=== PATIENT | female | born 1935 | race Caucasian/White ===

== ENCOUNTER → 2023-09-05 | Outpatient (CLI) | payer OTHER ==
[2023-09-05 09:14] LABS: Basophils # (auto) 0.1 10 ^3/uL (0-0.2); Basophils % (auto) 0.9 % (0.0-2.0); Eosinophils # (auto) 0.4 10 ^3/uL (0-0.8); Lymphocytes # (auto) 2.1 10 ^3/uL (0.4-5.4); Neutrophils # (auto) 4.9 10 ^3/uL (1.6-8.6)
[2023-09-05 09:16] LABS: Eosinophils % (auto) 5.5 % (0.0-7.0); Hematocrit 34.2 % (36.0-46.0); Hemoglobin 10.7 g/dL (12.2-16.2); Lymphocytes % (auto) 25.9 % (10.0-50.0); Mean Corpuscular Hemoglobin 22.8 pg (28.0-32.0); Mean Corpuscular Hgb Conc. 31.2 g/dL (32.0-36.0); Mean Corpuscular Volume 73.1 fL (80.0-100.0); Monocytes # (auto) 0.6 10 ^3/uL (0-1.3); Neutrophils % (auto) 60.7 % (37.0-80.0); Red Blood Cells 4.69 10^6/uL (4.0-5.20); Red Cell Distribution Width 16.2 % (11.8-14.3)
[2023-09-05 09:37] LABS: % Iron Saturation 12.9 % (15-50)
[2023-09-05 09:38] LABS: Alanine Aminotransferase 12 U/L (7-40); Alkaline Phosphatase 54 U/L (46-116); Anion Gap 9 (5-15); Calcium 8.2 mg/dL (8.5-10.1); Carbon Dioxide 25 mmol/L (20-30); Chloride 103 mmol/L (98-107); Potassium 4.5 mmol/L (3.5-5.1); Sodium 137 mmol/L (136-145)
[2023-09-05 09:39] LABS: Blood Urea Nitrogen 19 mg/dL (9-23); Glucose 170 mg/dL (74-106); Triglycerides 200 mg/dL (< 150)
[2023-09-05 09:40] LABS: Aspartate Aminotransferase 21 U/L (13-40); LDL Cholesterol 86 mg/dL (< 100)
[2023-09-05 09:41] LABS: Bilirubin, Total 0.2 mg/dL (0.2-1.0); Cholesterol 142 mg/dL (< 200); HDL Cholesterol 30 mg/dL (40-59); Total Protein 6.5 g/dL (5.7-8.2)
[2023-09-05 10:26] LABS: Urine Bacteria MOD /hpf (None Seen); Urine Blood Negative /uL (Negative); Urine Clarity Clear (Clear); Urine Color Colorless (Yellow); Urine Protein, UAD Negative (Negative); Urine Specific Gravity 1.018 (1.001-1.035); Urine Urobilinogen Normal (Negative); Urine WBC 5 /hpf (0 - 5)
[2023-09-05 11:02] LABS: Folate (Folic Acid) 11.05 ng/mL (>5.38)
[2023-09-05 13:18] LABS: Uric Acid 8.9 mg/dL (3.1-7.8)
== END | disposition home or self-care (01) ==
LOC: LAB 08:08
PROVIDERS: ATTEND Family Medicine
DX: Z00.00 Encounter for general adult medical examination without abnormal findings (principal); Z13.89 Encounter for screening for other disorder; H57.9 Unspecified disorder of eye and adnexa
CPT/HCPCS: 36415; 80053; 80061; 81001; 82607; 82746; 83036; 83540; 83550; 84403; 84443; 84550; 85025

== ENCOUNTER 2023-10-17 13:51 | Emergency (ER) | payer MEDICAID, OTHER ==
[~2023-10-17] VITALS: Ht 152.4 cm; Wt 60.2 kg
[2023-10-17 16:32] LABS: Basophils # (auto) 0.1 10 ^3/uL (0-0.2); Basophils % (auto) 0.9 % (0.0-2.0); Hemoglobin 10.1 g/dL (12.2-16.2); Lymphocytes # (auto) 2.4 10 ^3/uL (0.4-5.4); Mean Corpuscular Volume 72.6 fL (80.0-100.0); Monocytes # (auto) 0.6 10 ^3/uL (0-1.3); Neutrophils % (auto) 57.3 % (37.0-80.0); White Blood Cell 8.1 10^3/uL (4.4-10.8)
[2023-10-17 16:33] LABS: Eosinophils # (auto) 0.3 10 ^3/uL (0-0.8); Eosinophils % (auto) 4.2 % (0.0-7.0); Hematocrit 33.1 % (36.0-46.0); Lymphocytes % (auto) 29.8 % (10.0-50.0); Mean Corpuscular Hemoglobin 22.2 pg (28.0-32.0); Mean Corpuscular Hgb Conc. 30.6 g/dL (32.0-36.0); Monocytes % (auto) 7.8 % (0.0-12.0); Neutrophils # (auto) 4.6 10 ^3/uL (1.6-8.6); Red Blood Cells 4.56 10^6/uL (4.0-5.20); Red Cell Distribution Width 15.8 % (11.8-14.3)
[2023-10-17 16:38] LABS: Urine Bacteria FEW /hpf (None Seen); Urine Blood Negative /uL (Negative); Urine Clarity Clear (Clear); Urine Color Colorless (Yellow); Urine Protein, UAD Negative (Negative); Urine Specific Gravity 1.017 (1.001-1.035); Urine Urobilinogen Normal (Negative); Urine WBC 5 /hpf (0 - 5)
[2023-10-17 16:53] LABS: Alanine Aminotransferase 25 U/L (7-40); Albumin 4.7 g/dL (3.2-4.8); Alkaline Phosphatase 85 U/L (46-116); Anion Gap 8 (5-15); Aspartate Aminotransferase 25 U/L (13-40); BUN/Creatinine Ratio 16.8 (10.0-20.0); Blood Urea Nitrogen 18 mg/dL (9-23); Calcium 10.3 mg/dL (8.5-10.1); Carbon Dioxide 30 mmol/L (20-30); Chloride 100 mmol/L (98-107); Glucose 235 mg/dL (74-106); Potassium 4.3 mmol/L (3.5-5.1); Sodium 138 mmol/L (136-145)
[2023-10-17 16:54] LABS: Bilirubin, Total 0.2 mg/dL (0.2-1.0); Total Protein 7.6 g/dL (5.7-8.2)
[2023-10-17] MEDS ORDERED: CEPH500C PO (19:13)
[2023-10-17 19:18] VITALS: BP 163/82; PULSE 82; RESP 16; TEMP 97.9; O2SAT 95
== END 2023-10-17 19:22 | disposition home or self-care (01) ==
LOC: ER 13:51
DX: E11.65 Type 2 diabetes mellitus with hyperglycemia (principal); N39.0 Urinary tract infection, site not specified; I50.9 Heart failure, unspecified; Z79.899 Other long term (current) drug therapy
CPT/HCPCS: 36415; 80053; 81001; 85025; 93005

== ENCOUNTER → 2023-12-05 | Outpatient (CLI) | payer OTHER ==
[~2023-12-05] MED LIST: CEPH500C PO
[2023-12-05 07:59] LABS: Urine Bacteria MANY /hpf (None Seen); Urine Blood Negative /uL (Negative); Urine Clarity Clear (Clear); Urine Hyaline Cast FEW /lpf (0 - 2); Urine Protein, UAD Negative (Negative); Urine Specific Gravity 1.013 (1.001-1.035); Urine Urobilinogen Normal (Negative); Urine WBC 12 /hpf (0 - 5)
[2023-12-05 08:02] LABS: Urine Color Straw (Yellow)
[2023-12-05 08:03] LABS: Basophils # (auto) 0.1 10 ^3/uL (0-0.2); Basophils % (auto) 0.8 % (0.0-2.0); Eosinophils # (auto) 0.4 10 ^3/uL (0-0.8); Hemoglobin 10.9 g/dL (12.2-16.2); Lymphocytes # (auto) 2.1 10 ^3/uL (0.4-5.4)
[2023-12-05 08:04] LABS: Hematocrit 35.5 % (36.0-46.0); Lymphocytes % (auto) 29.5 % (10.0-50.0); Mean Corpuscular Hemoglobin 22.4 pg (28.0-32.0); Mean Corpuscular Hgb Conc. 30.7 g/dL (32.0-36.0); Mean Corpuscular Volume 72.9 fL (80.0-100.0); Monocytes # (auto) 0.6 10 ^3/uL (0-1.3); Neutrophils # (auto) 3.9 10 ^3/uL (1.6-8.6); Neutrophils % (auto) 54.7 % (37.0-80.0); Red Blood Cells 4.87 10^6/uL (4.0-5.20); Red Cell Distribution Width 15.6 % (11.8-14.3); White Blood Cell 7.1 10^3/uL (4.4-10.8)
[2023-12-05 08:20] LABS: Alanine Aminotransferase 15 U/L (7-40); Alkaline Phosphatase 84 U/L (46-116); Anion Gap 8 (5-15); Aspartate Aminotransferase 26 U/L (13-40); BUN/Creatinine Ratio 15.5 (10.0-20.0); Blood Urea Nitrogen 20 mg/dL (9-23); Calcium 9.8 mg/dL (8.5-10.1); Carbon Dioxide 27 mmol/L (20-30); Chloride 102 mmol/L (98-107); Glucose 259 mg/dL (74-106); LDL Cholesterol 83 mg/dL (< 100); Sodium 137 mmol/L (136-145); Triglycerides 229 mg/dL (< 150)
[2023-12-05 08:21] LABS: Albumin 4.5 g/dL (3.2-4.8); Cholesterol 148 mg/dL (< 200); HDL Cholesterol 38 mg/dL (40-59)
[2023-12-05 08:22] LABS: Bilirubin, Total 0.3 mg/dL (0.2-1.0); Total Protein 7.7 g/dL (5.7-8.2)
[2023-12-05 08:23] LABS: Thyroid Stimulating Hormone 0.42 uIU/mL (0.55-4.78)
[2023-12-05 08:42] LABS: Uric Acid 7.3 mg/dL (3.1-7.8)
[2023-12-05 08:55] LABS: Folate (Folic Acid) 12.08 ng/mL (>5.38)
== END | disposition home or self-care (01) ==
LOC: LAB 07:32
PROVIDERS: ATTEND Family Medicine
DX: E11.9 Type 2 diabetes mellitus without complications (principal); D50.9 Iron deficiency anemia, unspecified; Z00.00 Encounter for general adult medical examination without abnormal findings
CPT/HCPCS: 36415; 80053; 80061; 81001; 82607; 82746; 83036; 83615; 84403; 84443; 84550; 85025

== ENCOUNTER → 2024-02-26 | Outpatient (CLI) | payer MEDICAID ==
[2024-02-26 07:24] LABS: Basophils # (auto) 0.1 10 ^3/uL (0-0.2); Eosinophils # (auto) 0.4 10 ^3/uL (0-0.8); Hemoglobin 10.4 g/dL (12.2-16.2); Mean Corpuscular Volume 73.6 fL (80.0-100.0); Monocytes # (auto) 0.5 10 ^3/uL (0-1.3); Neutrophils # (auto) 3.3 10 ^3/uL (1.6-8.6); Red Cell Distribution Width 17.7 % (11.8-14.3)
[2024-02-26 07:25] LABS: Eosinophils % (auto) 6.5 % (0.0-7.0); Lymphocytes % (auto) 31.1 % (10.0-50.0); Mean Corpuscular Hemoglobin 22.5 pg (28.0-32.0); Mean Corpuscular Hgb Conc. 30.6 g/dL (32.0-36.0); Monocytes % (auto) 8.4 % (0.0-12.0); Red Blood Cells 4.62 10^6/uL (4.0-5.20); White Blood Cell 6.3 10^3/uL (4.4-10.8)
[2024-02-26 07:28] LABS: Urine Bacteria MOD /hpf (None Seen); Urine Blood Negative /uL (Negative); Urine Clarity Turbid (Clear); Urine Color Light-Yellow (Yellow); Urine Mucus FEW (None Seen); Urine Protein, UAD Negative (Negative); Urine Specific Gravity 1.018 (1.001-1.035); Urine Urobilinogen Normal (Negative); Urine WBC 7 /hpf (0 - 5)
[2024-02-26 08:06] LABS: Alanine Aminotransferase 11 U/L (7-40); Albumin 4.5 g/dL (3.2-4.8); Alkaline Phosphatase 75 U/L (46-116); Anion Gap 9 (5-15); Aspartate Aminotransferase 20 U/L (13-40); BUN/Creatinine Ratio 22.6 (10.0-20.0); Blood Urea Nitrogen 31 mg/dL (9-23); Calcium 10.1 mg/dL (8.5-10.1); Carbon Dioxide 25 mmol/L (20-30); Chloride 103 mmol/L (98-107); Cholesterol 178 mg/dL (< 200); Glucose 253 mg/dL (74-106); HDL Cholesterol 41 mg/dL (40-59); LDL Cholesterol 98 mg/dL (< 100); Potassium 4.8 mmol/L (3.5-5.1); Sodium 137 mmol/L (136-145); Triglycerides 279 mg/dL (< 150)
[2024-02-26 08:07] LABS: Bilirubin, Total 0.2 mg/dL (0.2-1.0); Thyroid Stimulating Hormone 0.9 uIU/mL (0.55-4.78); Total Protein 7.4 g/dL (5.7-8.2)
[2024-02-26 08:37] LABS: Uric Acid 7.6 mg/dL (3.1-7.8)
[2024-02-26 11:22] LABS: Folate (Folic Acid) 12.08 ng/mL (>5.38)
== END | disposition home or self-care (01) ==
LOC: LAB 06:58
PROVIDERS: ATTEND Family Medicine
DX: E11.9 Type 2 diabetes mellitus without complications (principal); D50.9 Iron deficiency anemia, unspecified
CPT/HCPCS: 36415; 80053; 80061; 81001; 82607; 82746; 83036; 83615; 84403; 84443; 84550; 85025

== ENCOUNTER 2025-06-09 18:14 | Emergency (ER) | payer OTHER, MEDICAID ==
[~2025-06-09] VITALS: Ht 152.4 cm; Wt 55.5 kg
--- NOTE | 2025-06-09 18:31 | ECG ---
[facility] Test Date: 2025-06-09 Test Time: 18:25:11 Pat Name: ROLAND SHEPHERD Department: ED Room: Gender: F Reference Assistant: JULIO : 1935 Requested By: RONY RODGERS Order Number: [id number] Reading MD: Augusto Murray Measurements Intervals [place] Rate: 100 P: 49 RI: 164 QRS: 86 QRSD: 92 T: -34 QT: 343 QTc: 443 Interpretive Statements Sinus tachycardia Borderline right axis deviation Nonspecific repol abnormality, diffuse leads Electronically Signed On 06-11-2025 18:45:28 PDT by Augusto Murray Please click the below link to view image of tracing.
[2025-06-09] MEDS: NITROGLYCERIN 0.4 MG SL TAB SL ONE ×2 (18:36→23:00)
--- NOTE | 2025-06-09 18:51 | ED.PDOC ---
HPI Comments Ol-year-old female accompanied by her son at bedside. Patient presents to emergency depart for evaluation of some generalized weakness and vertigo-like dizziness that started today. Patient has history of hypertension states compliance with her medications. Denies any other focal neurological deficits. Patient denies any pain anywhere in her body. Denies any nausea or vomiting or chest pain or shortness of breath or diarrhea. Vitals: Temperature 97.9F Pulse 102 Respiratory rate 20 Blood pressure 210/90 SpO2 96% w/O2 HPI: Poor Historian. Past Medical History: CKF, DM, thyroid disease, HLD, HTN, UTI's Past Surgical History: eye surgery REVIEW OF SYSTEMS: CONSTITUTIONAL: Denies acute: fever, diaphoresis, chills, HEAD: Denies acute: headache, photophobia Eyes: Denies acute: Double vision, vision loss, eye pain, eye discharge. EARS: Denies acute: tinnitus, hearing loss, ear discharge, ear pain, THROAT: Denies acute: sore throat, swelling, difficulty swallowing , pain with swallowing, change in voice. NECK: Denies acute: neck pain, neck swelling, stiff neck. HEART: Denies acute : chest pain, palpitations, LUNGS: Denies acute: SOB, wheezing, cough, hemoptysis ABDOMEN: Denies acute: abdominal pain, Nausea, Vomiting, diarrhea, melena , hematemesis, hematochezia SKIN: Denies acute: rash, redness, lesions, itchiness. EXTREMITIES: Denies acute: calf pain, numbness, tingling, weakness, denies pain in extremity. Denies acute: Low back pain. Neuro: Denies acute: focal neurological deficit, motor or sensory focal neurological deficit, tremors, seizure like activity, confusion, change in mental status, loss of bowel or bladder function, cauda equina like symptoms. : Denies acute: dysuria, hematuria, flank pain, increase in urinary frequency. PSYCH: Denies acute: hallucination, suicidal ideation, homicidal ideation. FEMALE: Denies acute: abnormal vaginal bleeding, foul odor, unusual discharge. PHYSICAL EXAM: General: ----mild----acute distress, awake and alert. Head: normocephalic, atraumatic. Neck: supple, trachea is midline, no swelling. Throat: Normal phonation. Eyes:, no erythema, no purulent discharge, no proptosis, no icterus. Heart: regular rate, regular rhythm, no significant murmur appreciated. Lungs: no apparent respiratory distress, Able to speak in full sentences. No wheezing, no rhonchi, no crackles. No stridors Clear to auscultation bilaterally. Abdomen: non tender to palpation, non distended, soft, no guarding, no rebound, + bowel sounds. Neuro: Awake, Alert, oriented to name, self, situation, follows commands GCS=15. Speech is normal. Skin: no petechia, no purpura, no cyanosis, non-pale, not jaundice. Lower extremities: --no - Pitting edema no deformity, no focal swelling, no calf TTP. Makes eye contact. moves all four extremities. Face: no apparent facial droop. PERRLA, EOM-I CN 2-12 are grossly intact, left eye is blind ED COURSE: DISCLAIMER: This medical document was created using an electronic medical record system with voice recognition software and computerized dictation system. Although this document has been carefully reviewed, there might still be some phonetic and t ypographical errors. Occasional wrong-word or "sound-alike" substitutions may have occurred due to the inherent limitations of voice recognition software. These areas are purely typographical due to imperfections of the software programs and do not reflect any compromise in the patient's medical care. Please read the chart carefully and recognize, using context, where these substitutions have occurred. Chief Complaint: General Weakness Time Seen by MD: 18:45 Reviewed Notes: Allergies Allergies: Coded Allergies: NO KNOWN ALLERGIES (Unverified , 10/17/23) Home Meds Active Scripts Amoxicillin & Pot Clavulanate (AUGMENTIN TABLET) 875 Mg Tb, 875 MG PO BID for 7 Days, #14 TAB Prov:RONY RODGERS DO 06/10/25 Cephalexin Monohydrate (Cephalexin) 500 Mg Cap, 1 CAP PO QID for 10 Days, #40 CAP Prov:SUMANTH RUIZ MD 10/17/23 Information Source: Patient, Relative Mode of Arrival: Ambulatory Past Medical History PAST MEDICAL HISTORY: CKF, DM Surgical History: Denies all surgeries Family History Family History: Reviewed,noncontributory to illness Social History Smoker: Non-Smoker Alcohol: Denies ETOH Use Drugs: Denies Drug Use Lives In: Home Was a procedure done? Was a procedure done?: No CP Differential Dx Differential Diagnosis: Other (As far as generalized weakness: Includes but not limited to thyroid disease, encephalopathy, electrolyte abnormality, sepsis, infection, intracranial pathology, drug adverse effects, arrhythmia, kidney insufficiency, ACS, CVA, malignancy, anemia), N/A X-Ray, Labs, Meds, VS Vital Signs Date Time Temp Pulse Resp B/P (MAP) Pulse Ox O2 Delivery O2 Flow Rate FiO2 06/10/25 05:01 157/78 (104) 06/10/25 04:51 192/86 06/10/25 04:45 97.9 88 12 192/56 (101) 95 97.9 06/10/25 00:54 98.5 92 20 177/94 (121) 95 98.5 06/09/25 23:00 173/92 06/09/25 22:30 98.6 102 50 176/92 (120) 95 98.6 06/09/25 18:39 98.3 102 24 119/86 (97) 96 98.3 06/09/25 18:36 199/86 06/09/25 18:25 100 06/09/25 18:15 97.9 97 20 210/90 96 97.9 Lab Test 06/10/25 00:56 06/09/25 23:55 06/09/25 22:56 06/09/25 18:50 Range/Units Troponin I High Sensitivity < 3 L < 3 L < 3 L </=34 ng/L Urine Color Colorless Yellow Urine Clarity Clear Clear Urine pH 5.5 5.0-9.0 Urine Specific [place] 1.008 1.001-1.035 Urine Protein Negative Negative Urine Ketones 1+ H Negative Urine Blood Negative Negative /uL Urine Nitrite Negative Negative Urine Bilirubin Negative Negative Urine Urobilinogen Normal Negative mg/dL Urine Leukocyte Esterase Negative Negative /uL Urine RBC 1 0 - 4 /hpf Urine Microscopic WBC 1 0-5 /HPF Urine Squamous Epithelial Cells None seen <5 /hpf Urine Bacteria None seen None Seen /hpf Urine Glucose Normal Normal mg/dL Lactic Acid Level 1.9 2.4 *H 0.4-2.0 mmol/L White Blood Count 7.7 4.4-10.8 10^3/uL Red Blood Count 5.04 4.0-5.20 10^6/uL Hemoglobin 13.4 12.2-16.2 g/dL Hematocrit 41.4 36.0-46.0 % Mean Corpuscular Volume 82.2 80.0-100.0 fL Mean Corpuscular Hemoglobin 26.6 L 28.0-32.0 pg Mean Corpuscular Hemoglobin Concent 32.4 32.0-36.0 g/dL Red Cell Distribution Width 14.1 11.8-14.3 % Platelet Count 308 140-450 10^3/uL Mean Platelet Volume 9.4 6.9-10.8 fL Neutrophils (%) (Auto) 48.9 37.0-80.0 % Lymphocytes (%) (Auto) 36.8 10.0-50.0 % Monocytes (%) (Auto) 7.9 0.0-12.0 % Eosinophils (%) (Auto) 5.4 0.0-7.0 % Basophils (%) (Auto) 1.0 0.0-2.0 % Neutrophils # (Auto) 3.8 1.6-8.6 10 ^3/uL Lymphocytes # (Auto) 2.8 0.4-5.4 10 ^3/uL Monocytes # (Auto) 0.6 0-1.3 10 ^3/uL Eosinophils # (Auto) 0.4 0-0.8 10 ^3/uL Basophils # (Auto) 0.1 0-0.2 10 ^3/uL Nucleated Red Blood Cells 0.1 % Sodium Level 134 L 136-145 mmol/L Potassium Level 4.8 3.5-5.1 mmol/L Chloride Level 98 98-107 mmol/L Carbon Dioxide Level 25 20-31 mmol/L Anion Gap 11 5-15 Blood Urea Nitrogen 18 9-23 mg/dL Creatinine 1.02 0.550-1.02 mg/dL Glomerular Filtration Rate Calc 53 >90 mL/min BUN/Creatinine Ratio 17.6 10.0-20.0 Serum Glucose 127 H 74-106 mg/dL Calcium Level 10.3 8.7-10.4 mg/dL Magnesium Level 1.5 L 1.6-2.6 mg/dL Total Bilirubin 0.2 0.2-1.0 mg/dL Aspartate Amino Transferase (AST) 33 13-40 U/L Alanine Aminotransferase (ALT) 27 7-40 U/L Alkaline Phosphatase 61 46-116 U/L Total Protein 8.1 5.7-8.2 g/dL Albumin 5.0 H 3.2-4.8 g/dL [facility] [id number] [facility] [address] Ph: [phone] DIAGNOSTIC IMAGING Diagnostic Imaging Report : [id number] Signed PATIENT: ROLAND SHEPHERD ACCT: [id number] UNIT: [id number] : 1935 LOC: ER ROOM / BED: / AGE / SEX: 89 / F ADM STATUS: REG ER SERVICE 27 ORDERING PHYSICIAN: RONY RODGERS DO PROCEDURE(s): HWOCT - HEAD WITHOUT CONTRAST REASON: HTN, weak ORDER NUMBER(s): [id number], ACCESSION NUMBER(s): [id number] COMPUTERIZED TOMOGRAPHY OF THE HEAD WITHOUT CONTRAST REASON FOR STUDY: HTN, weak COMPARISON: None TECHNIQUE: Helical tomographic scans were obtained through the brain. 2-D coronal and sagittal reformatted images are provided. Radiation optimization: All CT scans at this facility use at least one of these dose optimization techniques: Automated exposure control mA and/or kV adjustment per patient size (includes targeted exams where dose is matched to clinical indication) or iterative reconstruction. RADIATION DOSE: CTDI: 49 mGy DLP: 781 mGy-cm FINDINGS: No suspicious intracranial hyperdensity to suggest acute blood. There is no mass effect nor midline shift. There is mild generalized volume loss with compensatory enlargement of the CSF spaces. There is no hydrocephalus. The suprasellar cistern is intact. There are scattered periventricular and deep white matter hypodensities that are most consistent with chronic microangiopathic changes. The calvarium is intact. The visualized mastoid air cells are clear. There is frothy material in bilateral maxillary sinuses and in the right sphenoid sinus. There is extensive mucosal thickening in the ethmoid air cells. IMPRESSION: No acute intracranial abnormality. Mild generalized volume loss with chronic small vessel ischemic change. Extensive mucosal disease in the sinuses. Correlate clinically for acute sinusitis. ATED BY: DANIEL UREÑA MD DICTATED DATE/TIME: 06/09/251919 SIGNED BY: DANIEL UREÑA MD SIGNED DATE/TIME: 06/09/251919 CC: [place] [id number] Ph: [phone] DIAGNOSTIC IMAGING Diagnostic Imaging Report : [id number] Signed PATIENT: OWEN SHEPHERDCCT: [id number] UNIT: [id number] : 1935 LOC: ER ROOM / BED: / AGE / SEX: 89 / F ADM STATUS: REG ER SERVICE 27 ORDERING PHYSICIAN: RONY RODGERS DO PROCEDURE(s): CXRP - CHEST PORTABLE REASON: weak ORDER NUMBER(s): [id number], ACCESSION NUMBER(s): [id number] EXAM: XY CHEST PORTABLE HISTORY: weak TECHNIQUE: 1 view of the chest COMPARISON: None FINDINGS/IMPRESSION: LUNGS: Trace right-sided pleural effusion. Alveolar and interstitial opacity with trace fluid along the right minor fissure in the right lung base with asymmetric volume loss MEDIASTINUM: Unremarkable BONES: No acute osseous abnormality OTHER: None ATED BY: CAMMY VILLATORO MD DICTATED DATE/TIME: 06/09/251930 SIGNED BY: CAMMY VILLATORO MD SIGNED DATE/TIME: 06/09/251930 CC: Time of 1ST Reevaluation: 19:15 Reevaluation 1ST: Unchanged Patient Education/Counseling: Diagnosis, Treatment Family Education/Counseling: No Family Present Comments MDM: patient presented with the above HPI.--generalized weakness/dizziness----workup was initiated. patient was found with the above mentioned diagnosis. the following medications were ordered: please refer to order lists of meds and tests obtained by myself Dr. Rodgers. Patient ED course and VS have been stabilized. Patient has been reassessed in the ED and remained in a stable condition. Pertinent incidental findings were discussed with the patient and/or family. Patient/family voices understanding and is agreeable with plan. Patient has been observed in the ED adequate length of time to insure improvement/stability. Escalation of care considered: Consideration of escalation to observation or admission Patient was DISCHARGED home in a stable condition. All the reports of any imaging studies that were ordered by myself were reviewed by myself. SEPSIS Sepsis Screen Date sepsis recognized/suspect: Jun 09, 2025 Time Sepsis recognized/suspect: 1816 Recent Procedure: No On Antibiotic Therapy: No Respiratory Rate >20: No Heart Rate >90: No Temp<36 C (96.8 F) or >38.3 C: No SBP <90 or MAP <65 mmHG: No New Acute Mental Status Change: No Is the patient on CPAP, BIPAP,: No Physician Orders Vegetable Buncher (06/09/25 ) Chest Portable (06/09/25 18:28) Electrocardigram (06/09/25 18:28) Head Without Contrast (06/09/25 18:28) Vital Signs Date Time Temp Pulse Resp B/P (MAP) Pulse Ox O2 Delivery O2 Flow Rate FiO2 06/10/25 05:01 157/78 (104) 06/10/25 04:51 192/86 06/10/25 04:45 97.9 88 12 192/56 (101) 95 97.9 06/10/25 00:54 98.5 92 20 177/94 (121) 95 98.5 06/09/25 23:00 173/92 06/09/25 22:30 98.6 102 50 176/92 (120) 95 98.6 06/09/25 18:39 98.3 102 24 119/86 (97) 96 98.3 06/09/25 18:36 199/86 06/09/25 18:25 100 06/09/25 18:15 97.9 97 20 210/90 96 97.9 Laboratory Tests Test 06/09/25 18:50 06/09/25 22:56 Lactic Acid Level 2.4 mmol/L (0.4-2.0) *H 1.9 mmol/L (0.4-2.0) White Blood Count 7.7 10^3/uL (4.4-10.8) Departure 1 Departure Time of Disposition: 18:53 Impression: Primary Impression: Hypertensive urgency Additional Impressions: Vertigo Generalized weakness Sinusitis Disposition: HOME / SELF CARE / HOMELESS Condition: Stable Additional Instructions: Additional instructions: Please read all instructions provided in this packet carefully. You MUST follow-up with your primary care/family doctor in 1 to 2 days. If you are unable to see your primary care/family doctor, please return to our emergency room for re-assessment and re-evaluation in 1 to 2 days. Return to the emergency room here in our facility or to the nearest ER [facility] if your symptoms change or worsen. CONSULTATIONS: you MUST Follow-up for consultation as soon as possible with: -neurology and cardiology in 1-2 days. Please call for appointment. You MUST call the consultants office yourself to make an appointment. You may need to arrange that through your insurance and/or your primary/family doctor. If you are unable to see the acquisition consultant in 1 to 2 days, you must return to our emergency room (or any other ER of your choice) for re-assessment and re- evaluation. Adequate fluid hydration. Although you have been discharged from the Emergency Department, this does not mean that you have a "clean bill of health". No definitive diagnosis for your symptoms has been made today. It is possible that you are in the process of developing a serious illness. This is why you must return to the ED without fail if any new or worsening symptoms develop. Monitoring blood pressure at home at least 3 times a day. Fall precautions. Below is a copy of your radiological report for follow up: e-Prescriptions Amoxicillin & Pot Clavulanate (AUGMENTIN TABLET) 875 Mg Tb 875 MG PO BID for 7 Days, #14 TAB Prov: RONY RODGERS DO 06/10/25 Discharged With: Self, Relative Critical Care Note Critical Care Time?: No I personally scribed for RONY RODGERS DO ([email or web address]) on 06/09/25 at 18:51. Electro nically submitted by Kilo [place]ro ([email or web address]). I personally scribed for RONY RODGERS DO ([email or web address]) on 06/09/25 at 21:35. Elec tronically submitted by Kilo Oro ([email or web address]). I personally scribed for RONY RODGERS DO ([email or web address]) on 06/09/25 at 21:41. E lectronically submitted by Kilo Oro ([email or web address]). I personally scribed for RONY RODGERS DO ([email or web address]) on 06/09/25 at 21:42. Electronically submitted by Kilo Oro ([email or web address]). RONY RODGERS DO Jun 09, 2025 18:51
[2025-06-09] MEDS: SODIUM CHLORIDE 0.9% 1,000 ML IV ONE (19:00)
[2025-06-09] MEDS: MECLIZINE HCL 25 MG TAB PO ONE (19:00)
[2025-06-09 19:06] LABS: Hematocrit 41.4 % (36.0-46.0); Hemoglobin 13.4 g/dL (12.2-16.2); Mean Corpuscular Hemoglobin 26.6 pg (28.0-32.0); Mean Corpuscular Volume 82.2 fL (80.0-100.0); Nucleated Red Blood Cells % 0.1 %
[2025-06-09 19:18] LABS: Alanine Aminotransferase 27 U/L (7-40); Albumin 5.0 g/dL (3.2-4.8); Alkaline Phosphatase 61 U/L (46-116); Anion Gap 11 (5-15); BUN/Creatinine Ratio 17.6 (10.0-20.0); Bilirubin, Total 0.2 mg/dL (0.2-1.0); Blood Urea Nitrogen 18 mg/dL (9-23); Calcium 10.3 mg/dL (8.7-10.4); Carbon Dioxide 25 mmol/L (20-31); Chloride 98 mmol/L (98-107); Glucose 127 mg/dL (74-106); Magnesium 1.5 mg/dL (1.6-2.6); Potassium 4.8 mmol/L (3.5-5.1); Sodium 134 mmol/L (136-145); Total Protein 8.1 g/dL (5.7-8.2)
--- NOTE | 2025-06-09 19:22 | DVH ---
COMPUTERIZED TOMOGRAPHY OF THE HEAD WITHOUT CONTRAST REASON FOR STUDY: HTN, weak COMPARISON: None TECHNIQUE: Helical tomographic scans were obtained through the brain. 2-D coronal and sagittal refor matted images are provided. Radiation optimization: All CT scans at this facility use at least one of these dose optimization techniques: Automated exposure control mA and/or kV adjustment per patient s ize (includes targeted exams where dose is matched to clinical indication) or iterative reconstructio n. RADIATION DOSE: CTDI: 49 mGy DLP: 781 mGy-cm FINDINGS: No suspicious intracranial hyperdensity to suggest acute blood. There is no mass effect n or midline shift. There is mild generalized volume loss with compensatory enlargement of the CSF spac es. There is no hydrocephalus. The suprasellar cistern is intact. There are scattered periventricular and deep white matter hypodensities that are most consistent with chronic microangiopathic changes. The calvarium is intact. The visualized mastoid air cells are clear. There is frothy material in bila teral maxillary sinuses and in the right sphenoid sinus. There is extensive mucosal thickening in th e ethmoid air cells. IMPRESSION: No acute intracranial abnormality. Mild generalized volume loss with chronic small vessel ischemic change. Extensive mucosal disease in the sinuses. Correlate clinically for acute sinusitis.
--- NOTE | 2025-06-09 19:33 | DVH ---
EXAM: XY CHEST PORTABLE HISTORY: weak TECHNIQUE: 1 view of the chest COMPARISON: None FINDINGS/IMPRESSION: LUNGS: Trace right-sided pleural effusion. Alveolar and interstitial opacity with trace fluid along the right minor fissure in the right lung base with asymmetric volume loss MEDIASTINUM: Unremarkable BONES: No acute osseous abnormality OTHER: None
[2025-06-09 19:45] LABS: Lactic Acid w/Reflex 2.4 mmol/L (0.4-2.0)
[2025-06-10 01:26] LABS: Urine Protein, UAD Negative (Negative)
[2025-06-10] MEDS ORDERED: AUG875T PO (02:33)
[2025-06-10 04:45] VITALS: PULSE 88; RESP 12; TEMP 97.9; O2SAT 95
[2025-06-10] MEDS: NITROGLYCERIN 0.4 MG SL TAB SL ONE (04:51)
[2025-06-10 05:01] VITALS: BP 157/78
== END 2025-06-10 04:30 | disposition home or self-care (01) ==
LOC: ER 18:22
DX: I16.0 Hypertensive urgency (principal); R42 Dizziness and giddiness; R53.1 Weakness; J32.9 Chronic sinusitis, unspecified; E11.9 Type 2 diabetes mellitus without complications; Z79.899 Other long term (current) drug therapy
CPT/HCPCS: 36415; 70450; 71045; 80053; 81001; 83605; 83735; 84484; 85025; 93005; 96360; 99285; J7030; J8597